=== PATIENT | female | born 1980 | race Two or more races ===

== ENCOUNTER 2018-06-13 13:14 | Emergency (ER) | payer MEDICAID ==
[~2018-06-13] VITALS: Ht 165.1 cm; Wt 94.8 kg
[~2018-06-13 13:14] MED LIST: PREN1TAB49 PO
[2018-06-13 13:20] VITALS: Ht 165.1 cm; Wt 94.8 kg
[2018-06-13] MEDS ORDERED: ACETAMINOPHEN 500 MG TAB PO STA (15:07)
[2018-06-13] MEDS ORDERED: ACET500C5 PO (15:10)
[2018-06-13] MEDS ORDERED: IBUP800T48 PO (15:10)
[2018-06-13] MEDS ORDERED: IBUPROFEN 800 MG TAB PO ONE (15:30)
--- NOTE | 2018-06-13 15:36 | ERD ---
ER Documentation Chief Complaint Chief Complaint sore throat , fever , cough x 2 days HPI 38-year-old female presenting with sore throat and fever with cough times 2 days. She describes her cough is dry. She had no runny nose but has a sore throat. Positive sick contacts at home. Has diffuse body aches and has not taken medication today for symptoms. Denies medical problems. NKDA. Surgical history denies. Up-to-date on vaccinations. Social history denies ROS All systems reviewed and are negative except as per history of present illness. Medications Home Meds Active Scripts Acetaminophen* (Tylophen*) 500 Mg Capsule, 2 CAP PO Q8H PRN for PAIN AND OR ELEVATED TEMP, #20 CAP Prov:ELIANE MILLS PA-C 06/13/18 Ibuprofen* (Motrin*) 800 Mg Tab, 800 MG PO Q6, #30 TAB Prov:ELIANE MILLS PA-C 06/13/18 Reported Medications Vits W-Ca,Fe,Fa(<1MG) () 1 Tab Tablet, PO DAILY 09/30/11 Allergies Allergies: Coded Allergies: No Known Allergies (Verified Allergy, 09/30/11) PMhx/Soc Medical and Surgical Hx: pt denies Medical Hx, pt denies Surgical Hx Hx Alcohol Use: No Hx Substance Use: No Hx Tobacco Use: No Smoking Status: Never smoker FmHx Family History: No diabetes, No coronary disease, No other Physical Exam Vitals Vital Signs Date Temp Pulse Resp B/P (MAP) Pulse Ox O2 O2 Flow FiO2 Time Delivery Rate 06/13/18 101.7 88 18 141/75 96 13:20 (97) Physical Exam GENERAL: The patient is well-appearing, well-nourished, in no acute distress HEENT: Atraumatic. Conjunctivae are pink. Pupils equal, round, and reactive to light. There is no scleral icterus. Tympanic membranes clear bilaterally. Oropharynx clear. NECK: C-spine is soft and supple. There is no meningismus. There is no cervical lymphadenopathy. CHEST: Clear to auscultation bilaterally. There are no rales, wheezes or rhonchi. HEART: Regular rate and rhythm. No murmurs, clicks, rubs or gallops. Results 24 hrs Current Medications Medications Dose Sig/Nelda Start Time Status Last (Trade) Ordered Route PRN Stop Time Admin Dose Reason Admin Ibuprofen 800 mg ONCE ONCE 06/13/18 DC 06/13/18 (Motrin) PO 15:30 15:18 06/13/18 15:31 1,000 mg ONCE STAT 06/13/18 DC 06/13/18 Acetaminophen PO 15:07 15:18 (Tylenol 06/13/18 15:09 Tab) Procedures/MDM ER course: Ibuprofen and Tylenol given ED. MDM: 38-year-old female presenting with viral syndrome. Patient has fever on exam. I have low suspicion for meningitis or sepsis. I have low suspicion for bacterial [employer] infection. Patient is discharged with supportive medications and told to follow-up with primary care within 1-2 days for close evaluation. Patient is told symptoms change or worsen to return immediately to the ER. All questions answered at discharge Departure Diagnosis: Primary Impression: Flu-like symptoms Additional Impression: Sore throat Condition: Stable Patient Instructions: Influenza (Adult) Referrals: [facility] YOU HAVE RECEIVED A MEDICAL SCREENING EXAM AND THE RESULTS INDICATE THAT YOU DO NOT HAVE A CONDITION THAT REQUIRES URGENT TREATMENT IN THE EMERGENCY DEPARTMENT. FURTHER EVALUATION AND TREATMENT OF YOUR CONDITION CAN WAIT UNTIL YOU ARE SEEN IN YOUR DOCTORS OFFICE WITHIN THE NEXT 1-2 DAYS. IT IS YOUR RESPONSIBILITY TO MAKE AN APPOINTMENT FOR FOLOW-UP CARE. IF YOU HAVE A PRIMARY DOCTOR --you should call your primary doctor and schedule an appointment IF YOU DO NOT HAVE A PRIMARY DOCTOR YOU CAN CALL OUR PHYSICIAN REFERRAL HOTLINE AT IF YOU CAN NOT AFFORD TO SEE A PHYSICIAN YOU CAN CHOSE FROM THE FOLLOWING [facility] [id number] [facility] [address] [facility] [facility] [address] [facility] [facility] [address] [facility] [address] [facility]. [facility]. [address] Additional Instructions: FOLLOW UP WITH YOUR PRIMARY CARE PHYSICIAN TOMORROW.Return to this facility if you are not improving as expected. ELIANE MILLS PA-C Jun 13, 2018 15:36
[2018-06-13 15:53] VITALS: BP 135/68; PULSE 89; RESP 18
== END 2018-06-13 15:54 | disposition home or self-care (01) ==
LOC: FTE 13:14
DX: J02.9 Acute pharyngitis, unspecified (principal)
CPT/HCPCS: Z7502; Z7610; 99282